=== PATIENT | male | born 1950 | race African-American/Black ===

== ENCOUNTER 2023-12-03 06:23 | Day surgery (SDC) | payer MEDICARE, SELFPAY ==
[2023-12-03] VITALS (9 sets, daily range): BP systolic 86–144; BP diastolic 67–99; BMI 24.0
== END 2023-12-03 14:30 | disposition home or self-care (01) ==
LOC: GI 06:23
PROVIDERS: ATTENDING PHYSICIAN Internal Medicine Critical Care Medicine
DX: R59.0 Localized enlarged lymph nodes (principal)
CPT/HCPCS: 31629; 31654; 88172; 88173; 88305; 88312

== ENCOUNTER → 2023-12-07 06:36 | Day surgery (SDC) | payer MEDICARE, SELFPAY | LOC: GI 06:36 | PROVIDERS: ATTENDING PHYSICIAN Internal Medicine Gastroenterology | DX: Z12.11 Encounter for screening for malignant neoplasm of colon (principal); D12.2 Benign neoplasm of ascending colon; D12.3 Benign neoplasm of transverse colon; K57.30 Diverticulosis of large intestine without perforation or abscess without bleeding | CPT/HCPCS: 45380; 88305 ==

== ENCOUNTER → 2024-06-03 17:03 | Outpatient (REF) | payer MEDICARE, SELFPAY | LOC: CLAB 17:03 | PROVIDERS: ATTENDING PHYSICIAN Urology | DX: R97.20 Elevated prostate specific antigen [PSA] (principal) | CPT/HCPCS: 88305; 88344 ==

== ENCOUNTER → 2024-10-08 12:53 | Outpatient (REF) | payer MEDICARE, SELFPAY | LOC: MRI 3T 12:53 | PROVIDERS: ATTENDING PHYSICIAN Nurse Practitioner Family; FAMILY PHYSICIAN Nurse Practitioner Family | DX: K86.2 Cyst of pancreas (principal); Z01.812 Encounter for preprocedural laboratory examination | CPT/HCPCS: 74183; A9575 ==

== ENCOUNTER → 2025-07-28 08:43 | Outpatient (REF) | payer MEDICARE, SELFPAY ==
[2025-07-28 13:32] LABS: PSA, Total - Diagnostic 1.91 ng/ml (0.0-4.0)
== END ==
LOC: HWLAB 08:43
PROVIDERS: ATTENDING PHYSICIAN Urology; FAMILY PHYSICIAN Nurse Practitioner Family; REFERRING PHYSICIAN Internal Medicine Rheumatology
DX: C61 Malignant neoplasm of prostate (principal); M54.50 Low back pain, unspecified
CPT/HCPCS: 36415; 72072; 72100; 84153